=== PATIENT | female | born 1995 ===

== ENCOUNTER 2017-01-14 02:41 | Emergency (ER) | payer OTHER ==
[~2017-01-14] VITALS: Ht 162.6 cm; Wt 50.0 kg
[2017-01-14] MEDS ORDERED: SOD CHLORIDE 0.9% 1,000 ML IV STA (02:59)
[2017-01-14 03:13] VITALS: Ht 162.6 cm; Wt 50.0 kg
[2017-01-14] MEDS ORDERED: DEXTROSE 50% 50 ML SYRINGE IV ONE ×2 (03:30→07:00)
[2017-01-14 03:52] LABS: ADD UMIC YES; UR ASCORBIC ACID NEGATIVE (NEGATIVE); UR BACTERIA MODERATE /HPF (NONE SEEN); UR BILIRUBIN (Dip) NEGATIVE (NEGATIVE); UR BLOOD (Dip) NEGATIVE (NEGATIVE); UR CLARITY CLOUDY (CLEAR); UR COLOR AMBER (YELLOW); UR GLUCOSE (Dip) 1+ mg/dL (NEGATIVE); UR KETONES (Dip) TRACE mg/dL (NEGATIVE); UR LEUKOCYTE ESTERASE (Dip) TRACE Leu/ul (NEGATIVE); UR MUCUS MODERATE /HPF (NONE SEEN); UR NITRITE (Dip) POSITIVE (NEGATIVE); UR RBC 2 /HPF (0-5); UR SPECIFIC GRAVITY (Dip) 1.015 (1.003-1.030); UR SQUAMOUS EPITHELIAL CELL FEW /HPF (FEW); UR TOTAL PROTEIN (Dip) 2+ mg/dl (NEGATIVE); UR UROBILINOGEN (Dip) 2+ mg/dL (NEGATIVE)
[2017-01-14 04:03] LABS: BENZODIAZEPINES Negative (NEGATIVE)
[2017-01-14 04:06] LABS: BARBITURATES Negative (NEGATIVE); CANNABINOIDS Positive (NEGATIVE); COCAINE Negative (NEGATIVE); OPIATES Positive (NEGATIVE)
[2017-01-14 04:07] LABS: BASOPHIL # 0.1 10^3/ul (0.0-0.1); BASOPHILS % 0.5 % (0.0-2.0); EOSINOPHILS % 0.3 % (0.0-7.0); HEMATOCRIT 41.2 % (37.0-47.0); LYMPHOCYTES # 2.2 10^3/ul (0.8-2.9); LYMPHOCYTES % 14.5 % (15.0-51.0); MEAN CORPUSCULAR HEMOGLOBIN 27.9 pg (29.0-33.0); MEAN CORPUSCULAR VOLUME 82.1 fl (82.0-101.0); MEAN PLATELET VOLUME 9.1 fl (7.4-10.4); MONOCYTES % 6.6 % (0.0-11.0); NEUTROPHIL # 11.6 10^3/ul (1.6-7.5); NEUTROPHILS % 77.7 % (39.0-77.0); PLATELET COUNT 546 10^3/UL (140-415); RED BLOOD COUNT 5.02 10^6/ul (4.20-5.40); RED CELL DISTRIBUTION WIDTH 14.1 % (11.5-14.5); WHITE BLOOD COUNT 14.9 10^3/ul (4.8-10.8)
[2017-01-14 04:15] LABS: ALANINE AMINOTRANSFERASE 42 IU/L (13-69); ALBUMIN 4.5 g/dl (3.3-4.9); ALBUMIN/GLOBULIN RATIO 1.02; ALKALINE PHOSPHATASE 110 IU/L (42-121); ANION GAP 18 (8-16); ASPARTATE AMINO TRANSFERASE 41 IU/L (15-46); BILIRUBIN,INDIRECT 0.1 mg/dl (0-1.1); BILIRUBIN,TOTAL 0.1 mg/dl (0.2-1.3); BLOOD UREA NITROGEN 11 mg/dl (7-20); CALCIUM 9.5 mg/dl (8.4-10.2); CARBON DIOXIDE 26 mmol/L (21-31); CHLORIDE 105 mmol/L (97-110); CREATININE 0.51 mg/dl (0.44-1.00); POTASSIUM 3.7 mmol/L (3.5-5.1); SODIUM 145 mmol/L (135-144); TOTAL PROTEIN 8.9 g/dl (6.1-8.1)
[2017-01-14 04:26] LABS: ACETAMINOPHEN < 10.0 ug/ml (10.0-30.0); ETHANOL < 10.0 mg/dl; SALICYLATE < 1.0 mg/dl (5.0-30.0)
[2017-01-14 04:29] LABS: GLUCOSE 22 mg/dl (70-220)
--- NOTE | 2017-01-14 05:37 | ERD ---
ER Documentation Chief Complaint Chief Complaint bib ra from outside conv. store for od, given narcan iv and nasal, bs 20 HPI This is 21 female brought in by paramedics as a convenience store for overdosing. Given Narcan was given with response. Upon the patient's belligerent. Requiring restraints. No other current issues. ROS All systems reviewed and are negative except as per history of present illness. Allergies Allergies: Coded Allergies: No Known Allergy (Unverified , 01/14/17) PMhx/Soc Medical and Surgical Hx: Unable to obtain Hx Alcohol Use: No Hx Substance Use: No Hx Tobacco Use: No Smoking Status: Never smoker Physical Exam Vitals Vital Signs Date Time Temp Pulse Resp B/P Pulse Ox O2 Delivery O2 Flow Rate FiO2 01/14/17 03:25 97.8 81 18 126/80 100 Room Air 01/14/17 03:13 97.8 74 18 116/97 100 Physical Exam Const: [] Head: Atraumatic Eyes: Normal Conjunctiva ENT: Normal External Ears, Nose and Mouth. Neck: Full range of motion..~ No meningismus. Resp: Clear to auscultation bilaterally Cardio: Regular rate and rhythm, no murmurs Abd: Soft, non tender, non distended. Normal bowel sounds Skin: No petechiae or rashes Back: No midline or flank tenderness Ext: No cyanosis, or edema Neur: Awake and alert Psych: Normal Mood and Affect Result Diagram: 01/14/17 0343 01/14/17 0343 Results 24 hrs Laboratory Tests Test 01/14/17 02:52 01/14/17 03:06 01/14/17 03:15 01/14/17 03:43 Bedside Glucose 21mg/dL 58mg/dL Urine Color RASHID Urine Clarity CLOUDY Urine pH 6.0 Urine Specific [place] 1.015 Urine Ketones TRACEmg/dL Urine Nitrite POSITIVEmg/dL Urine Bilirubin NEGATIVEmg/dL Urine Urobilinogen 2+mg/dL Urine Leukocyte Esterase TRACELeu/ul Urine Microscopic RBC 2/HPF Urine Microscopic WBC 11/HPF Urine Squamous Epithelial Cells FEW/HPF Urine Bacteria MODERATE/HPF Urine Mucus MODERATE/HPF Urine Hemoglobin NEGATIVEmg/dL Urine Glucose 1+mg/dL Urine Total Protein 2+mg/dl Urine Opiates Screen Positive Urine Barbiturates Negative Urine Amphetamines Screen POSITIVE Urine Benzodiazepines Screen Negative Urine Cocaine Screen Negative Urine Cannabinoids Positive White Blood Count 14.910^3/ul Red Blood Count 5.0210^6/ul Hemoglobin 14.0g/dl Hematocrit 41.2% Mean Corpuscular Volume 82.1fl Mean Corpuscular Hemoglobin 27.9pg Mean Corpuscular Hemoglobin Concent 34.0g/dl Red Cell Distribution Width 14.1% Platelet Count 46625^3/UL Mean Platelet Volume 9.1fl Neutrophils % 77.7% Lymphocytes % 14.5% Monocytes % 6.6% Eosinophils % 0.3% Basophils % 0.5% Nucleated Red Blood Cells % 0.0/100WBC Neutrophils # 11.610^3/ul Lymphocytes # 2.210^3/ul Monocytes # 1.010^3/ul Eosinophils # 0.010^3/ul Basophils # 0.110^3/ul Nucleated Red Blood Cells # 0.010^3/ul Sodium Level 145mmol/L Potassium Level 3.7mmol/L Chloride Level 105mmol/L Carbon Dioxide Level 26mmol/L Anion Gap 18 Blood Urea Nitrogen 11mg/dl Creatinine 0.51mg/dl Glucose Level 22mg/dl Calcium Level 9.5mg/dl Total Bilirubin 0.1mg/dl Direct Bilirubin 0.00mg/dl Indirect Bilirubin 0.1mg/dl Aspartate Amino Transf (AST/SGOT) 41IU/L Alanine Aminotransferase (ALT/SGPT) 42IU/L Alkaline Phosphatase 110IU/L Total Protein 8.9g/dl Albumin 4.5g/dl Globulin 4.40g/dl Albumin/Globulin Ratio 1.02 Salicylates Level < 1.0mg/dl Acetaminophen Level < 10.0ug/ml Ethyl Alcohol Level < 10.0mg/dl Test 01/14/17 04:15 01/14/17 04:34 01/14/17 05:29 Bedside Glucose 134mg/dL 100mg/dL 104mg/dL Current Medications Medications (Trade) Dose Ordered Sig/Radha Route PRN Reason Start Time Stop Time Status Last Admin Dose Admin Sodium Chloride (NS) 1,000 ml @ 1,000 mls/hr Q1H STAT IV 01/14/17 02:59 01/14/17 03:58 DC 01/14/17 03:29 Dextrose 25 ml 25 ml ONCE ONCE IV 01/14/17 03:30 01/14/17 03:31 DC 01/14/17 03:35 Dextrose (D10w) 1,000 ml @ 100 mls/hr Q10H IV 01/14/17 05:30 Procedures/MDM Medical decision-makin year female polysubstance abuse. At this point clinically stable. Upon sobering, patient will be discharged home to be advised to stop using drugs Departure Diagnosis: Primary Impression: Alcoholic intoxication Complication of substance-induced condition: uncomplicated Qualified Code: F10.920 - Alcoholic intoxication without complication Additional Impression: Drug abuse Condition: Stable DENILSON QUACH Jan 14, 2017 05:37
[2017-01-14] MEDS: DEXTROSE 10% 1,000 ML IV SCH ×2 (06:00→07:07)
[2017-01-14 06:30] VITALS: TEMP 97.4
[2017-01-14] MEDS ORDERED: CEFTRIAXONE 1 GM/50 ML (PMX) 50 ML IVPB STA (06:57)
[2017-01-14] MEDS ORDERED: NALOXONE (0.4 MG/ML) INJ IV ONE (07:00)
--- NOTE | 2017-01-14 07:11 | EN ---
Date/Time of Note Date/Time of Note DATE: 01/14/17 TIME: 07:02 Event Note Medicine Medicine Event Note ER Event Note S: This patient was signed out to me by Dr. Oleary at 6AM on January 14, 2017. Briefly, this is a 21-year-old female with polysubstance abuse who is presenting to the emergency department with altered mental status and lethargy. The patient was reportedly found on the street with a concern of overdose. She was given Narcan which she was reportedly responsive to. In the emergency department, she had a blood sugar of 21. She was given D50 in the ER that transiently brought up her blood sugar, but she continued to drop. She is placed on a D10 drip which did bring her blood sugar up to the low 100s. However, it was stopped and her sugar was checked 30 minutes later and found to be in the 60s and then again in the 20s. ROS/PMH/PSH/FH/Social Hx: Not obtainable / patient status. O: Vital Signs: Reviewed. Tachycardic, BP stable, SpO2 100% Const: No apparent distress, well-developed, well-nourished, The patient is lethargic, responsive only with persistence. She does know her name and her birthday, but she is unable to provide significant details about what happened today Head: Atraumatic Eyes: Normal Conjunctiva. Extraocular movements intact. Pupils equal, round and reactive to light ENT: Normal External Ears, Nose and Mouth. Neck: Full range of motion. No meningismus. Resp: Clear to auscultation bilaterally Cardio: Regular rhythm, sinus tachycardia, no murmurs Abd: Soft, non tender, non distended. Normal bowel sounds Skin: No petechiae or rashes, track uriarte on arms. Back: No midline or flank tenderness Ext: No cyanosis, or edema Neur: Lethargic, oriented 1. Cranial nerves intact. No facial droop. Moves all extremities spontaneously and to pain. A: Altered mental status, hypoglycemia, tachycardia, SIRS, UTI P: At time of signout, there was reportedly consideration to discharge her once she kyle up. The D10 drip was stopped transiently and a sugar was again rechecked and found to be dangerously low. At this time, I do not feel that she is safe for discharge given her persistently dropping blood sugar. I will also obtain blood and urine cultures given her sign of SIRS with a urinary tract infection. Given her persistent altered mentation, a CT of the head will also be obtained. A chest x-ray and EKG will be completed as well. Her lactic was 2.4. LABS The patient's blood work was reviewed. The patient's CBC shows leukocytosis with left shift. I am concerned of a systemic infection. She is also tachycardic on exam, which meets SIRS criteria. The patient is not anemic today. The patient's platelet count is unremarkable. The patient's CMP showed severe hypoglycemia. The patient has unremarkable renal and hepatic function testing. Her UA demonstrated a UTI. Her UDS was positive for meth, opiates and marijuana. EKG EKG read by me: Rate/Rhythm: Regular rate and rhythm at a rate of 92 bpm Intervals: Normal [place]: Normal Impression: No evidence of ischemia or arrhythmia IMAGING CXR FINDINGS: The lungs are clear. The heart size is normal. There is no pleural effusion. There is no pneumothorax. IMPRESSION: Normal chest radiograph. Electronically viewed and signed by .Ad Sams MD, on 01/14/2017 07:40 CT Head FINDINGS: There is normal diaz-white matter differentiation. The ventricles and cisterns are normal. There is no intracranial hemorrhage or space- occupying lesion. There is no skull fracture or lytic lesion. IMPRESSION: Normal noncontrast CT scan of the brain. No intracranial hemorrhage. Electronically viewed and signed by .Ad Sams MD, MD on 01/14/2017 07:53 TREATMENT/DISPOSITION As stated above, the patient's persistent hypoglycemia is concerning and I believe that this requires admission for further evaluation. The patient was accepted by Dr. Radha Khalil of the [facility] in accordance with the patient' s insurance to the telemetry service. The sepsis protocol was initiated. Blood culture and urine cultures were sent off. The patient received 30 mg/kg bolus of Normal Saline in the emergency department. She also received Rocephin for presumed urinary tract infection. Patient's infectious symptoms have not stabilized and the patient is at risk of rapid decompensation. The patient will be admitted for careful hydration, antibiotic therapy, and infectious source control. Severe Sepsis criteria: Infectious source: UTI End organ damage indicated by: Lactate > 2.0 mmol/L Sepsis Management: Time of recognition of sepsis: 06:45AM on 01/14/2017 Within 3 hours of recognition: Blood cultures x 2 before broad-spectrum antibiotics: Yes 30 ml/kg NS bolus: Completed Initial lactate: 2.4 CRITICAL CARE: Time: 35 minutes excluding all billable procedures Interventions: Emergent fluid management while maintaining close respiratory support. Provision of immediate and broad-spectrum antibiotic therapy. Simultaneous assessment for possible sources in order to direct targeted therapy. Consideration for invasive and chemical support to prevent cardiopulmonary collapse. UPDATE: The patient had a prolonged ED course while waiting for a bed upstairs. The patient ultimately became more arousable and returned to baseline. She was awake enough to eat a sandwich on her own. Her blood sugars were checked and appeared to no longer be dropping. I do still feel that given her critical presentation that she requires admission and I did not recommend leaving the hospital to the patient. However, the patient did not want to stay and demanded to leave. The risks and benefits of admission versus discharge were discussed. The patient understands that if her blood sugar drops again that she could pass out, sustaining a head injury, sustaining a seizure, lose the ability to perform activities of daily living or perhaps even . The patient was willing to take this risk to be discharged. She ultimately decided to leave AGAINST MEDICAL ADVICE. As I was concerned for sepsis in this patient, I will send the patient home with a prescription for an antibiotic to treat her urinary tract infection. The patient will be notified if any of her cultures come back positive. The patient understands that even though she is leaving medical advice that she may return to the hospital at any time and we would be happy to reevaluate her at that time. The patient's blood pressure was elevated at greater than 120/80 while in the emergency department. The patient was otherwise stable with no evidence of hypertensive urgency or emergency. The patient will require reevaluation of his blood pressure in 2-3 days, but this may be completed by a primary care physician as an outpatient. He does not require admission for blood pressure control. JUAN RAZO MD Jan 14, 2017 07:11
--- NOTE | 2017-01-14 07:40 | RADRPT ---
PROCEDURE: XR Chest. CLINICAL INDICATION: Shortness of breath. TECHNIQUE: Single frontal view. COMPARISON: None. FINDINGS: The lungs are clear. The heart size is normal. There is no pleural effusion. There is no pneumothorax. IMPRESSION: 1. Normal chest radiograph. RPTAT: QQ .Ad Sams MD, MD Date Time Electronically viewed and signed by .Ad Sams MD, on 01/14/2017 07:40 .R/
--- NOTE | 2017-01-14 07:53 | RADRPT ---
PROCEDURE: CT Brain without contrast. CLINICAL INDICATION: Altered mental status. TECHNIQUE: A CT of the brain without contrast was performed utilizing axial sections from the skul l base through the vertex. The patient was scanned without intravenous contrast enhancement. Sagitta l and coronal reformatted images were obtained using the data from the axial images. Total exam DLP is 630.20 mGy-cm. CTDIvol is 44.33 mGy. One or more of the following dose reduction techniques we re used: Automated exposure control, adjustment of the mA and/or kV according to patient size, use o f iterative reconstruction technique. DICOM images are available. COMPARISON: None available FINDINGS: There is normal diaz-white matter differentiation. The ventricles and cisterns are normal. There is no intracranial hemorrhage or space-occupying lesion. There is no skull fracture or lytic lesion. IMPRESSION: 1. Normal noncontrast CT scan of the brain. 2. No intracranial hemorrhage. RPTAT: QQ .Ad Sams MD, MD Date Time Electronically viewed and signed by .Ad Sams MD, on 01/14/2017 07:53 .R/
[2017-01-14] MEDS ORDERED: ONDANSETRON 4 MG INJ IV PRN ×2 (09:00)
[2017-01-14] MEDS ORDERED: NACL 0.9% 3 ML SYG IV SCH (09:00)
[2017-01-14] MEDS ORDERED: ENOXAPARIN 40 MG/0.4 ML SYG SC SCH (09:00)
[2017-01-14] MEDS ORDERED: DOCUSATE SODIUM 100 MG CAP PO PRN (09:00)
[2017-01-14] MEDS ORDERED: LORAZEPAM 2 MG INJ IV PRN (09:00)
[2017-01-14] MEDS ORDERED: ACETAMINOPHEN 325 MG TAB PO PRN ×2 (09:00)
[2017-01-14] MEDS ORDERED: MAGNESIUM HYDROXIDE 30ML CUP PO PRN (09:00)
--- NOTE | 2017-01-14 09:03 | HP ---
Date/Time of Note Date/Time of Note DATE: 01/14/17 TIME: 09:03 Assessment/Plan VTE Prophylaxis VTE Prophylaxis Intervention: LMWH Lines/Catheters Urinary Cath still in place: No Assessment/Plan Assessment/Plan 1. Altered mental status secondary to substance abuse - Patient responded to Narcan but has still been very lethargic while in the ED - Utox positive for opiates, cannabinoids, and amphetamines - Continue monitoring - CT head negative for any acute abnormalities 2. Hypoglycemia - Glucose 22 at time of presentation - D10 started on which improved her sugars to above 100 but when d/c dropped to 20s - Will continue monitoring glucose q2hr until remains persistently above 80 and patient eating. - If no improvement will need to order further studies - Will consult Endocrinology if need be - Most likely secondary to anorexia 3. ?UTI - Patient UA is positive but unable to determine if symptomatic - Urine cultures obtained - Will empirically start on Ceftriaxone 4. Thrombocytosis - May be reactive - Will continue to monitor 5. Leukocytosis - secondary to #3 - Monitor vitals 6. Polysubstance abuse - Will monitor for withdrawal - Ativan PRN for agitation - Zofran PRN for nausea - Bentyl PRN for abdominal cramps 7. DVT ppx - LMWH 8. GI ppx - Pepcid 9. Code status - Full 10. Diet - Regular, when more alert 11. Disposition - Admit to telemetry for closer monitoring HPI/ROS Admit Date/Time Admit Date/Time 01/14/17 Hx of Present Illness 21 yo F with unknown PMH was found in front of a convenience store with concerns for overdose. Patient given Narcan by EMS which she responded to. She was found to be severely hypoglycemic with sugars in 20s. Patient was lethargic and not responding to questions during interview. History obtained from chart as well as ED physician. She was found to have urine tox positive for amphetamine, cannabinoids, and opiates. CT head negative for any acute abnormalities. ED was able to obtain patients name and birthday. ROS All 12 systems reviewed and limited secondary to altered mental status. PMH/Family/Social Past Medical History Unknown, substance abuse Past Surgical History unable to obtain Family History Significant Family History: no pertinent family hx Social History Alcohol Use: other (unable to obtain. ETOH levels negative) Smoking Status: Never smoker Drug Use: other (unable to obtain but Utox positive for opiates and amphetamines) Exam/Review of Systems Vital Signs Vitals Vital Signs Date Time Temp Pulse Resp B/P Pulse Ox O2 Delivery O2 Flow Rate FiO2 01/14/17 06:30 97.4 101 21 117/67 99 Room Air Exam Constitutional: non-verbal, other (lethargic) Psych: other (sedated) Head: atraumatic, normocephalic Eyes: EOMI, PERRL ENMT: mucosa pink and moist Neck: non-tender, supple Respiratory: clear to auscultation, No crackles/rales, No wheezing Cardiovascular: other (regular rate, tachycardic), No edema, No irregular rhythm Gastrointestinal: bowel sounds, non-tender, soft, No distended, No rebound or guarding Musculoskeletal: nl extremities to inspection Extremities: normal pulses, No cyanosis, No edema Neurological: lethargic Skin: nl turgor Lymph: nl lymph nodes Labs Result Diagram: 01/14/1734201/14/17 034 Medications Medications reviewed Current Medications Dextrose (D10w) 1,000 ml @ 100 mls/hr Q10H IV Last administered on 01/14/17t 07:07; Admin Dose 100 MLS/HR; Start 01/14/17 at 05:30 Ondansetron HCl (Zofran Inj) 4 mg Q6H PRN IV NAUSEA AND/OR VOMITING; Start at 09:00; Status UNV Acetaminophen (Tylenol Tab) 650 mg Q6H PRN PO PAIN LEVEL 1-3 OR FEVER; Start 01/14/17 at 09:00; Status UNV Docusate Sodium (Colace) 100 mg Q12H PRN PO CONSTIPATION; Start 01/14/17 at 09 :00; Status UNV Magnesium Hydroxide (Milk Of Mag) 30 ml DAILY PRN PO CONSTIPATION; Start 01/14 at 09:00; Status UNV Enoxaparin Sodium (Lovenox) 40 mg DAILY SC ; Start 01/14/17 at 09:00; Status UNV Lorazepam (Ativan) 2 mg Q6H PRN IV agitation, anxiety; Start 01/14/17 at 09:00 ; Status UNV Procedures Procedures PROCEDURE: XR Chest. CLINICAL INDICATION: Shortness of breath. TECHNIQUE: Single frontal view. COMPARISON: None. FINDINGS: The lungs are clear. The heart size is normal. There is no pleural effusion. There is no pneumothorax. IMPRESSION: 1. Normal chest radiograph. PROCEDURE: CT Brain without contrast. CLINICAL INDICATION: Altered mental status. TECHNIQUE: A CT of the brain without contrast was performed utilizing axial sections from the skull base through the vertex. The patient was scanned without intravenous contrast enhancement. Sagittal and coronal reformatted images were obtained using the data from the axial images. Total exam DLP is 630.20 mGy-cm. CTDIvol is 44.33 mGy. One or more of the following dose reduction techniques were used: Automated exposure control, adjustment of the mA and/or kV according to patient size, use of iterative reconstruction technique. DICOM images are available. COMPARISON: None available FINDINGS: There is normal diaz-white matter differentiation. The ventricles and cisterns are normal. There is no intracranial hemorrhage or space-occupying lesion. There is no skull fracture or lytic lesion. IMPRESSION: 1. Normal noncontrast CT scan of the brain. 2. No intracranial hemorrhage. CHILO TRUONG MD Jan 14, 2017 09:03
[2017-01-14] MEDS ORDERED: DICYCLOMINE 10 MG CAP PO PRN (09:30)
[2017-01-14] MEDS ORDERED: CEPH-443 PO (11:09)
[2017-01-14 11:11] VITALS: BP 127/68; PULSE 79; RESP 18
--- NOTE | 2017-01-14 13:35 | DS ---
Date/Time of Note Date/Time of Note DATE: 01/14/17 TIME: 11:21 Discharge Summary Admission/Discharge Info Admit Date/Time 01/14/17 Discharge Date/Time PATIENT LEFT AMA on 01/14/17 Discharge Diagnosis 1. Altered mental status secondary to substance abuse 2. Hypoglycemia 3. ?UTI 4. Thrombocytosis 5. Leukocytosis 6. Polysubstance abuse Patient Condition: Fair Hx of Present Illness 21 yo F with unknown PMH was found in front of a convenience store with concerns for overdose. Patient given Narcan by EMS which she responded to. She was found to be severely hypoglycemic with sugars in 20s. Patient was lethargic and not responding to questions during interview. History obtained from chart as well as ED physician. She was found to have urine tox positive for amphetamine, cannabinoids, and opiates. CT head negative for any acute abnormalities. ED was able to obtain patients name and birthday. Hospital Course Patient was admitted to the hospital but on hold in the ED due to no telemetry bed availability. The patient ultimately became more arousable and returned to baseline. She was awake enough to eat a sandwich on her own. Her sugars remained stable and she was adamant about leaving the hospital. ED physician discussed the risk and benefits of admission vs leaving AMA. Patient understood and was given script for Keflex due to concerns of sepsis. The patient was willing to take this risk to be discharged. She ultimately decided to leave AGAINST MEDICAL ADVICE. She was instructed to return to the ED if she was experiencing any issues of concern. Home Meds Active Scripts Cephalexin* (Keflex*) 500 Mg Capsule, 500 MG PO BID for 7 Days, CAP Prov:JUAN RAZO MD 01/14/17 Follow-up Plan Take Keflex for 5 days Return to ED if experiencing any concerning symptoms Primary Care Provider Care Physician No Primary Time spent on discharge: < 30 minutes Pending Labs Laboratory Tests Test 01/14/17 02:52 01/14/17 03:06 01/14/17 03:15 01/14/17 03:43 Bedside Glucose 21mg/dL (70-220) 58mg/dL (70-220) Urine Color RASHID (YELLOW) Urine Clarity CLOUDY (CLEAR) Urine pH 6.0 (5.0-9.0) Urine Specific [place] 1.015 (1.003-1.030) Urine Ketones TRACEmg/dL (NEGATIVE) Urine Nitrite POSITIVEmg/dL (NEGATIVE) Urine Bilirubin NEGATIVEmg/dL (NEGATIVE) Urine Urobilinogen 2+mg/dL (NEGATIVE) Urine Leukocyte Esterase TRACELeu/ul (NEGATIVE) Urine Microscopic RBC 2/HPF (0-5) Urine Microscopic WBC 11/HPF (0-5) Urine Squamous Epithelial Cells FEW/HPF (FEW) Urine Bacteria MODERATE/HPF (NONE SEEN) Urine Mucus MODERATE/HPF (NONE SEEN) Urine Hemoglobin NEGATIVEmg/dL (NEGATIVE) Urine Glucose 1+mg/dL (NEGATIVE) Urine Total Protein 2+mg/dl (NEGATIVE) Urine Opiates Screen Positive (NEGATIVE) Urine Barbiturates Negative (NEGATIVE) Urine Amphetamines Screen POSITIVE (NEGATIVE) Urine Benzodiazepines Screen Negative (NEGATIVE) Urine Cocaine Screen Negative (NEGATIVE) Urine Cannabinoids Positive (NEGATIVE) White Blood Count 14.910^3/ul (4.8-10.8) Red Blood Count 5.0210^6/ul (4.20-5.40) Hemoglobin 14.0g/dl (12.0-16.0) Hematocrit 41.2% (37.0-47.0) Mean Corpuscular Volume 82.1fl (82.0-101.0) Mean Corpuscular Hemoglobin 27.9pg (29.0-33.0) Mean Corpuscular Hemoglobin Concent 34.0g/dl (32.0-37.0) Red Cell Distribution Width 14.1% (11.5-14.5) Platelet Count 83895^3/UL (140-415) Mean Platelet Volume 9.1fl (7.4-10.4) Neutrophils % 77.7% (39.0-77.0) Lymphocytes % 14.5% (15.0-51.0) Monocytes % 6.6% (0.0-11.0) Eosinophils % 0.3% (0.0-7.0) Basophils % 0.5% (0.0-2.0) Nucleated Red Blood Cells % 0.0/100WBC (0.0-0.0) Neutrophils # 11.610^3/ul (1.6-7.5) Lymphocytes # 2.210^3/ul (0.8-2.9) Monocytes # 1.010^3/ul (0.3-0.9) Eosinophils # 0.010^3/ul (0.0-0.5) Basophils # 0.110^3/ul (0.0-0.1) Nucleated Red Blood Cells # 0.010^3/ul (0.0-0.0) Sodium Level 145mmol/L (135-144) Potassium Level 3.7mmol/L (3.5-5.1) Chloride Level 105mmol/L (97-110) Carbon Dioxide Level 26mmol/L (21-31) Anion Gap 18 (8-16) Blood Urea Nitrogen 11mg/dl (7-20) Creatinine 0.51mg/dl (0.44-1.00) Glucose Level 22mg/dl (70-220) Calcium Level 9.5mg/dl (8.4-10.2) Total Bilirubin 0.1mg/dl (0.2-1.3) Direct Bilirubin 0.00mg/dl (0.00-0.20) Indirect Bilirubin 0.1mg/dl (0-1.1) Aspartate Amino Transf (AST/SGOT) 41IU/L (15-46) Alanine Aminotransferase (ALT/SGPT) 42IU/L (13-69) Alkaline Phosphatase 110IU/L (42-121) Total Protein 8.9g/dl (6.1-8.1) Albumin 4.5g/dl (3.3-4.9) Globulin 4.40g/dl (1.3-3.2) Albumin/Globulin Ratio 1.02 Salicylates Level < 1.0mg/dl (5.0-30.0) Acetaminophen Level < 10.0ug/ml (10.0-30.0) Ethyl Alcohol Level < 10.0mg/dl Test 01/14/17 03:44 01/14/17 04:15 01/14/17 04:34 01/14/17 05:29 Bedside Glucose 24mg/dL (70-220) 134mg/dL (70-220) 100mg/dL (70-220) 104mg/dL (70-220) Test 01/14/17 06:50 01/14/17 07:30 01/14/17 07:41 01/14/17 09:37 Bedside Glucose 63mg/dL (70-220) 170mg/dL (70-220) 123mg/dL (70-220) 113mg/dL (70-220) Test 01/14/17 10:56 Bedside Glucose 151mg/dL (70-220) CHILO TRUONG MD Jan 14, 2017 13:04
[2017-01-15] MEDS ORDERED: FAMOTIDINE 20 MG TAB PO SCH (09:00)
[2017-01-15] MEDS ORDERED: CEFTRIAXONE 1 GM/50 ML (PMX) 50 ML IVPB SCH (09:00)
== END 2017-01-14 11:19 | disposition left against medical advice (07) ==
LOC: EDBD 02:41 → E/R 02:41
DX: F10.920 Alcohol use, unspecified with intoxication, uncomplicated (principal); R41.82 Altered mental status, unspecified; R06.02 Shortness of breath; F19.10 Other psychoactive substance abuse, uncomplicated
CPT/HCPCS: 36415; 70450; 71010; 80053; 80306; 80307; 81001; 82962; 83605; 85025; 87040; 87086; 93005; 96374; 96375; J2310; J7030